=== PATIENT | male | born 1955 | race Caucasian/White ===

== ENCOUNTER 2019-12-25 02:46 | Outpatient (CLI) | payer OTHER, SELFPAY ==
--- NOTE | 2019-12-25 | DI.RAD_ITS ---
EXAM: XR CERVICAL SPINE COMP 4-5V CLINICAL HISTORY: CERVICALGIA,M54.2,H/O HITTING HEAD,[id number],WEAKNESS LT ARM,NECK PAIN TECHNIQUE: COMPARISON: No exams were available for comparison FINDINGS: Five views were obtained. Prevertebral soft tissue structures appear intact. Intervertebral disc sp aces are well maintained. Mild hypertrophic spurring seen involving vertebral endplates and facet katie ints throughout the cervical region. No other significant bony deformity seen. Neural foramina appe ar fairly well maintained by plain film criteria. IMPRESSION: Hypertrophic degenerative changes, predominantly involving facet joints, no other significant finding s.
--- NOTE | 2019-12-25 07:45 | DI.CT_ITS ---
EXAM: CT CHEST WO CLINICAL HISTORY: F/U, SOLITARY PULMONARY NODULE, R91.1,[id number] TECHNIQUE: COMPARISON: CT CTA CHEST PE PROTOCOL from 07/13/2016 FINDINGS: Noncontrast chest CT was performed. Previous CT from [facility], [facility] of July 13, 2016 s howed 5 millimeter left lower lobe intrapulmonary nodule. This nodule is again seen today's examinat ion again measures 5 in diameter. No additional intrapulmonary nodule seen. No pleural effusion. T racheobronchial tree appears intact. No mediastinal adenopathy. Thoracic aortic ascending ectasia n oted at 45 millimeters.. Images obtained through the upper abdomen show unremarkable appearance visualized portions of liver, spleen, pancreas, adrenals, kidneys by noncontrast criteria. IMPRESSION: Stable 5 millimeter left lower lobe noncalcified intrapulmonary nodule. No other significant finding s.
== END 2019-12-25 03:06 ==
PROVIDERS: PCP Nurse Practitioner Primary Care; Visit Provider Nurse Practitioner Primary Care
DX: R91.1 Solitary pulmonary nodule (principal); M79.602 Pain in left arm; M54.2 Cervicalgia; M47.812 Spondylosis without myelopathy or radiculopathy, cervical region
CPT/HCPCS: 71250; 72050